=== PATIENT | female | born 1965 | race African-American/Black ===

== ENCOUNTER 2023-02-17 12:07 | Emergency (ER) | payer OTHER ==
[2023-02-17] MEDS ORDERED: Boostrix 0.5 ML (Tdap) VIAL (>/=7 yrs of age) ONE (13:19)
== END 2023-02-17 14:28 | disposition home or self-care (01) ==
LOC: ERS 12:07
DX: S91.011A Laceration without foreign body, right ankle, initial encounter (principal); I10 Essential (primary) hypertension; E78.00 Pure hypercholesterolemia, unspecified; W22.09XA Striking against other stationary object, initial encounter; Y92.89 Other specified places as the place of occurrence of the external cause; Z23 Encounter for immunization; Z79.899 Other long term (current) drug therapy
CPT/HCPCS: 90471; 90715

== ENCOUNTER 2024-05-14 18:09 | Emergency (ER) | payer OTHER ==
[2024-05-14 20:10] LABS: Bacteria/HPF Rare-Few HPF (None Seen); Bilirubin Negative (Negative); Blood, Urine 1+ (Negative); CAUTI Indications for Culture Dysuria,urgency,freq; Clarity Clear (Clear); Glucose, Urine (Dipstick) Normal (Negative); Ketone, Urine Negative (Negative); Leukocyte 75 Leu/uL (Negative); Nitrite Negative (Negative); Protein, Urine (Dipstick) Negative (Neg-Trace); Specific Gravity, Urine 1.007 (1.002-1.036); Squamous Epithelial 0-3 HPF (0-3); Urobilinogen Normal mg/dL (Less than 2); WBC/HPF 0-3 HPF (0-3)
[2024-05-14 20:11] LABS: Urine Culture Reflex No No
[2024-05-14] MEDS ORDERED: Lidocaine 1% w/Epinephrine 1:100K 20 ML VIAL ONE (20:19)
[2024-05-14] MEDS ORDERED: Acetaminophen 500 MG TAB ONE (20:21)
== END 2024-05-14 20:54 | disposition home or self-care (01) ==
LOC: ERS 18:09
DX: L02.214 Cutaneous abscess of groin (principal); I10 Essential (primary) hypertension
CPT/HCPCS: 10060; 81001; 87480; 87510; 87660

== ENCOUNTER 2024-09-24 12:57 | Emergency (ER) | payer OTHER ==
[2024-09-24 13:39] LABS: Bacteria/HPF None Seen HPF (None Seen); Bilirubin Negative (Negative); Blood, Urine 1+ (Negative); CAUTI Indications for Culture Pelvic or flank pain; Clarity Clear (Clear); Glucose, Urine (Dipstick) Normal (Negative); Ketone, Urine Negative (Negative); Leukocyte 500 Leu/uL (Negative); Nitrite Negative (Negative); Protein, Urine (Dipstick) Negative (Neg-Trace); Specific Gravity, Urine 1.021 (1.002-1.036); Urobilinogen Normal mg/dL (Less than 2); pH, Urine 5.5 (5.0-9.0)
[2024-09-24 13:40] LABS: Pregnancy Test - Urine (BHCG) Negative (Negative); Pregu Control Background? CLEAR/WHITE (CLR/WHITE); Pregu Control Bar Appear? YES (CONTROL BAR); Specific Gravity 1.021 (1.002-1.036); Urine Culture Reflex No No
[2024-09-24] MEDS ORDERED: Azithromycin 250 MG TAB ONE (15:00)
[2024-09-24] MEDS ORDERED: cefTRIAXone (ROCEPHIN) 500 MG VIAL ONE (15:01)
[2024-09-24] MEDS ORDERED: Lidocaine 1% PF 5 ML VIAL ONE (15:01)
== END 2024-09-24 14:52 | disposition home or self-care (01) ==
LOC: ERS 12:57
DX: N89.8 Other specified noninflammatory disorders of vagina (principal); I10 Essential (primary) hypertension
CPT/HCPCS: 81001; 81025; 96372; 99283; J0696

== ENCOUNTER 2025-06-25 16:23 | Emergency (ER) | payer OTHER ==
[~2025-06-25 16:23] MED LIST: Iopamidol-370 76% 500 ML MDV (1 ML CHARGE) ONE
[2025-06-25 17:18] LABS: #Basophils 0.03 10x3/uL (0.0-0.2); #Eosinophils Less than 0.03 10x3/uL (0.0-0.7); #Monocytes 0.29 10x3/uL (0.11-0.59); #Neutrophils 9.99 10x3/uL (1.40-6.50); %Basophils 0.3 % (0.0-1.0); %Eosinophils 0.0 % (0.0-10.0); %Lymphocytes 6.1 % (21.0-51.0); %Monocytes 2.6 % (0.0-10.0); %Neutrophils 90.6 % (42.0-75.0); Hematocrit 45.4 % (36.0-47.0); Hemoglobin 15.3 g/dL (12.0-16.0); Mean Corpuscular Hemoglobin 30.1 pg (27.0-31.0); Mean Corpuscular Volume 89.4 fL (78.0-98.0); Platelet Count 332 10x3/uL (130-400); Red Blood Cell (RBC) Count 5.08 mill/uL (4.20-5.40); White Blood Cell (WBC) Count 11.02 10x3/uL (4.8-10.8)
[2025-06-25] MEDS ORDERED: Ondansetron PF 4 MG/2 ML Vial ONE ×2 (17:20→20:52)
[2025-06-25 17:36] LABS: ALT (SGPT) 18 U/L (Less than 34); AST (SGOT) 29 U/L (11-34); Albumin 4.1 g/dL (3.1-4.5); Alkaline Phosphatase 83 U/L (40-110); Anion Gap 17 mmol/L (10-20); BUN (Urea Nitrogen) 12 mg/dL (9.8-20.1); Bilirubin, Total 0.5 mg/dL (0.3-1.2); Calc. Creatinine Clearance 0 mL/min (70-130); Calcium 9.5 mg/dL (7.8-10.44); Carbon Dioxide 21 mmol/L (22-29); Chloride 104 mmol/L (98-107); Globulin 3.8 g/dL (2.4-3.5); Glucose 185 mg/dL (70-105); Lipase 13 U/L (8-78); Potassium 3.9 mmol/L (3.5-5.1); Sodium 138 mmol/L (136-145)
[2025-06-25 17:45] LABS: CAUTI Indications for Culture Dysuria,urgency,freq; Glucose, Urine (Dipstick) 50 mg/dL (Negative); Leukocyte 75 Leu/uL (Negative); Protein, Urine (Dipstick) Negative (Neg-Trace); Specific Gravity, Urine 1.015 (1.002-1.036)
[2025-06-25 17:48] LABS: Bacteria/HPF 1+ HPF (None Seen)
[2025-06-25 17:49] LABS: Urine Culture Reflex No No
== END 2025-06-25 22:18 | disposition home or self-care (01) ==
LOC: ERS 16:23
DX: A09 Infectious gastroenteritis and colitis, unspecified (principal); I10 Essential (primary) hypertension
CPT/HCPCS: 74177; 80053; 81001; 83605; 83690; 85025; 87400; 87426; 93005; 96374; 96375; 96376; J2405; J3010; Q9967

== ENCOUNTER 2025-07-14 12:21 | Emergency (ER) | payer OTHER ==
[2025-07-14 14:22] LABS: Bacteria/HPF None Seen HPF (None Seen); CAUTI Indications for Culture Pelvic or flank pain; Glucose, Urine (Dipstick) Normal (Negative); Leukocyte Negative Leu/uL (Negative); Protein, Urine (Dipstick) Negative (Neg-Trace); RBC/HPF 0-3 HPF (0-3); Specific Gravity, Urine 1.019 (1.002-1.036); WBC/HPF 0-3 HPF (0-3)
[2025-07-14 14:24] LABS: Urine Culture Reflex No No
[2025-07-14] MEDS ORDERED: Azithromycin 250 MG TAB ONE (14:33)
[2025-07-14] MEDS ORDERED: cefTRIAXone (ROCEPHIN) 500 MG VIAL ONE (14:33)
[2025-07-14 22:17] LABS: Chlamydia by PCR, Vaginal Swab Not Detected (NotDetected); GC by PCR, Vaginal Swab Not Detected (NotDetected)
== END 2025-07-14 16:13 | disposition left against medical advice (07) ==
LOC: ERS 12:21
DX: N89.8 Other specified noninflammatory disorders of vagina (principal); I10 Essential (primary) hypertension; E78.5 Hyperlipidemia, unspecified; Z79.899 Other long term (current) drug therapy
CPT/HCPCS: 81001; 87480; 87491; 87510; 87591; 87660; 96372; 99283; J0696